=== PATIENT | male | born 1940 | race Caucasian/White ===

== ENCOUNTER 2019-03-27 04:34 | Emergency (ER) | payer MEDICARE ==
[2019-03-27 05:07] LABS: APPEARANCE,URINE Clear (CLEAR); BILIRUBIN,URINE Negative (NEGATIVE); COLOR,URINE Yellow (YELLOW); GLUCOSE, URINE (UA) Negative (NEGATIVE); KETONES,URINE Negative (NEGATIVE); LEUKOCYTE ESTERASE ,URINE Trace (NEGATIVE); NITRATE,URINE Negative (NEGATIVE); OCCULT BLOOD,URINE Negative (NEGATIVE); PH,URINE 5.5 (5.0-8.0); PROTEIN,URINE Negative (NEGATIVE); UROBILINOGEN,URINE 0.2 mg/dL (0.2-1.0)
[2019-03-27 05:22] LABS: BACTERIA,URINE None Seen /HPF (None Seen); RBC,URINE 0-1 /HPF (0-1); WBC,URINE 0-1 /HPF (0-1)
[2019-03-27 05:22] LABS: BASOPHILS % (AUTO) 0.5 % (0.0-5.0); EOSINOPHILS % (AUTO) 0.4 % (0.0-8.0); HEMATOCRIT 25.4 % (42-54); LYMPHOCYTES % (AUTO) 18.1 % (21.0-51.0); MEAN CORPUSCULAR HEMOGLOBIN 27.7 pg (27.0-33.0); MEAN CORPUSCULAR HGB CONC 33.5 g/dL (32.0-36.0); MEAN CORPUSCULAR VOLUME 82.7 fL (79-99); MONOCYTES % (AUTO) 12.9 % (3.0-13.0); PLATELET COUNT (AUTO) 393 K/uL (130-400); RED BLOOD CELL COUNT(AUTO) 3.07 MIL/uL (4.50-6.20); RED CELL DISTRIBUTION WIDTH 15.9 % (11.0-15.5); WHITE BLOOD COUNT (AUTO) 10.8 K/uL (4.8-10.8)
[2019-03-27 05:23] LABS: SQUAMOUS EPITHELIAL CELL,UR Few /HPF (0-2)
[2019-03-27 05:32] LABS: POTASSIUM 3.9 mmol/L (3.5-5.1)
[2019-03-27 05:34] LABS: ALBUMIN 2.9 g/dL (3.5-5.0); BILIRUBIN,TOTAL 0.6 mg/dL (0.2-1.0)
== END 2019-03-27 06:56 | disposition home or self-care (01) ==
LOC: EDH 04:34
DX: R33.9 Retention of urine, unspecified (principal); Z90.49 Acquired absence of other specified parts of digestive tract; Z87.891 Personal history of nicotine dependence
CPT/HCPCS: 36415; 80053; 81001; 85025

== ENCOUNTER → 2019-04-16 | Outpatient (CLI) | payer MEDICARE | END | disposition home or self-care (01) | LOC: RAH 12:42 | PROVIDERS: ATTEND Urology | DX: C61 Malignant neoplasm of prostate (principal) | CPT/HCPCS: 78306; A9503 ==

== ENCOUNTER → 2019-04-17 | Outpatient (CLI) | payer MEDICARE ==
[~2019-04-17] MED LIST: IOHEXOL-350 75 ML VIAL IV ONE
== END | disposition home or self-care (01) ==
LOC: RAH 09:23
PROVIDERS: ATTEND Urology
DX: C61 Malignant neoplasm of prostate (principal); K57.30 Diverticulosis of large intestine without perforation or abscess without bleeding; N32.3 Diverticulum of bladder; R68.89 Other general symptoms and signs; N30.90 Cystitis, unspecified without hematuria
CPT/HCPCS: 74177; Q9967

== ENCOUNTER 2019-05-14 06:42 | Day surgery (SDC) | payer MEDICARE ==
[2019-05-11 16:02] LABS: BASOPHILS % (AUTO) 0.5 % (0.0-5.0); HEMATOCRIT 23.4 % (42-54); LYMPHOCYTES % (AUTO) 26.2 % (21.0-51.0); MEAN CORPUSCULAR HEMOGLOBIN 26.7 pg (27.0-33.0); MEAN CORPUSCULAR HGB CONC 31.6 g/dL (32.0-36.0); MEAN CORPUSCULAR VOLUME 84.5 fL (79-99); MONOCYTES % (AUTO) 10.4 % (3.0-13.0); NEUTROPHILS % (AUTO) 59.9 % (40.0-77.0); PLATELET COUNT (AUTO) 494 K/uL (130-400); RED BLOOD CELL COUNT(AUTO) 2.77 MIL/uL (4.50-6.20); RED CELL DISTRIBUTION WIDTH 17.5 % (11.0-15.5)
[2019-05-11 16:02] LABS: APPEARANCE,URINE CLEAR (CLEAR); BILIRUBIN,URINE NEGATIVE (NEGATIVE); COLOR,URINE YELLOW (YELLOW); GLUCOSE, URINE (UA) NEGATIVE (NEGATIVE); KETONES,URINE NEGATIVE (NEGATIVE); LEUKOCYTE ESTERASE ,URINE MODERATE (NEGATIVE); NITRATE,URINE NEGATIVE (NEGATIVE); OCCULT BLOOD,URINE TRACE-INTACT (NEGATIVE); PROTEIN,URINE TRACE mg/dL (NEGATIVE); UROBILINOGEN,URINE 0.2 mg/dL (0.2-1.0)
[2019-05-11 16:17] LABS: BACTERIA,URINE Few /HPF (None Seen); RBC,URINE 0-1 /HPF (0-1); SQUAMOUS EPITHELIAL CELL,UR 0-2 /HPF (0-2)
[2019-05-11 16:17] LABS: CREATININE 0.9 mg/dL (0.5-1.5)
[2019-05-11 16:49] LABS: INR 1.07 (0.85-1.15); PARTIAL THROMBOPLASTIN TIME 30.5 SEC (26.3-35.5); PROTHROMBIN TIME 11.5 SEC (9.6-11.6)
--- NOTE | 2019-05-12 17:14 | NUR ---
LABS FAXED AND REPORTED ABNORMAL UA/ UA CULTURE/ CBC TO DR. IFEOMA DELANEY ASST. SHE WILL INFORM DR. WOOTEN AND CALL ME BACK.
[2019-05-13 12:23] VITALS: BP 135/58
--- NOTE | 2019-05-13 12:49 | NUR ---
ALLA DELANEY ON PHONE. PER DR. WOOTEN NO ORDERS. PROCEED WITH PLANNED PROCEDURE.
--- NOTE | 2019-05-13 12:50 | NUR ---
ANESTHESIA INFORMED DR. SCHMIDT OF ABNORMAL WBC/ H&H/PLATELET LEVEL. NO ORDERS RECEIVED. PROCEED WITH PLANNED PROCEDURE.
[~2019-05-14] VITALS: Ht 182.9 cm; Wt 73.5 kg
[2019-05-14] VITALS (19 sets, daily range): BP systolic 128–158; BP diastolic 58–75
[~2019-05-14 06:42] MED LIST changes: +AMOX1TAB15 PO; +BICA50TA7 PO; +CALC-1009 PO; -IOHEXOL-350 75 ML VIAL IV ONE; +IRON PO; +LOSA25TA41 PO; +MULT-1285 PO; +TRAM50TA4 PO
[2019-05-14] MEDS ORDERED: GENTAMICIN SULFATE 360 MG in SODIUM CHLORIDE 0.9% 100 ML IV SCH (07:15)
[2019-05-14] MEDS: CEFTRIAXONE SODIUM 1 GM IVP SCH ×2 (07:15→09:05)
[2019-05-14] MEDS ORDERED: LACTATED RINGERS 1000ML 1,000 ML IV ONE (08:06)
[2019-05-14] MEDS ORDERED: PROPOFOL 10 MG/ML 20ML VIAL IV ONE (08:55)
[2019-05-14] MEDS ORDERED: MIDAZOLAM HCL 1 MG/ML 2ML VIAL ONE (08:55)
[2019-05-14] MEDS ORDERED: FENTANYL CITRATE PF 50 MCG/1 ML 2ML VIAL ONE (08:55)
[2019-05-14] MEDS ORDERED: LIDOCAINE PF 2% 5ML ABBOJECT ONE (08:55)
[2019-05-14] MEDS ORDERED: ONDANSETRON HCL 4 MG/2 ML VIAL ONE (08:55)
[2019-05-14] MEDS ORDERED: DEXAMETHASONE SOD PHOSPHATE 10MG/ML 1ML VIAL ONE (08:55)
[2019-05-14] MEDS ORDERED: ROCURONIUM 10MG/1ML SYR 10 MG/ML ML ONE ×2 (08:55→09:48)
[2019-05-14] MEDS ORDERED: EPHEDRINE SULFATE 50 MG/ML AMPULE ONE (09:30)
[2019-05-14] MEDS ORDERED: GLYCOPYRROLATE 1 MG/5 ML SYRINGE ONE (10:51)
[2019-05-14] MEDS ORDERED: NEOSTIGMINE 5MG/5ML SYR IV ONE (10:51)
--- NOTE | 2019-05-14 11:40 | NUR ---
REPORT RECEIVED REPORT FROM [place] RN. WILL WAIT FOR PT TO COME TO UNIT POST SURGERY
--- NOTE | 2019-05-14 12:15 | NUR ---
post op received pt post op. pt brought via stretcher by drea armenta from [facility]. pt in no distress oriented to room.. pt has traction to hernández cath and hernández draining well
--- NOTE | 2019-05-14 13:30 | NUR ---
output 150ml true void of light pinkish urine. emptied 1300mls with cbi Addendum: 05/15/19 at 0813 by MAGDY PARKINSON RN RN Amended: Links added.
--- NOTE | 2019-05-14 13:30 | NUR ---
discharge pt hernández bag changed to leg bag. pt taken out via w/c and discharge instructions given to spouse and pt. pt in no distress
== END 2019-05-14 13:30 | disposition home or self-care (01) ==
LOC: DAH 06:42
PROVIDERS: ATTEND Urology
DX: N40.1 Benign prostatic hyperplasia with lower urinary tract symptoms (principal); C79.82 Secondary malignant neoplasm of genital organs; I10 Essential (primary) hypertension; R33.9 Retention of urine, unspecified; Z79.01 Long term (current) use of anticoagulants
CPT/HCPCS: 36415 ×2; 52648; 55700; 71045; 76942; 80048; 81001; 85025; 85610; 85730; 86850; 86900; 86901; 86922; 87077; 87088; 87186; 88305; 88341; 88342; 93005; A4213; A4215 ×2; A4221; A4222; A4223 ×2; A4354; A4600; A4663; A4930; C1758; J0696; J1100; J1580; J2001; J2250; J2405; J2704; J2710; J3010; J3490 ×2; J7030; J7120 ×2; P9016; 96365